=== PATIENT | female | born 1990 | race Caucasian/White ===

== ENCOUNTER 2017-08-31 19:04 | Emergency (ER) | payer SELFPAY ==
[~2017-08-31 19:04] MED LIST: CIPR500T4 PO; HYDR-3498 PO; PENI500T PO; TRAM50TA2 PO
== END 2017-08-31 22:00 | disposition left against medical advice (07) ==
LOC: FTE 19:04
DX: Z53.21 Procedure and treatment not carried out due to patient leaving prior to being seen by health care provider (principal)